=== PATIENT | female | born 1930 | race Caucasian/White ===

== ENCOUNTER 2018-03-11 23:09 | Inpatient (IN) | payer OTHER, BC ==
[2018-03-12] MEDS: SODIUM CHLORIDE 0.9% 1L BAG IV* (00:14)
[2018-03-12] MEDS: LEVALBUTEROL (NEB) 1.25 MG/0.5 ML AMP INH (00:16)
[2018-03-12] MEDS: IPRATROPIUM (NEB) 0.5 MG/2.5 ML AMP NEB (00:16)
[2018-03-12 00:20] LABS: ADD MAN DIFF? NO
[2018-03-12 00:25] LABS: WHITE BLOOD COUNT 10.6 10^3/ul (4.8-10.8)
[2018-03-12 00:25] LABS: ABNORMAL IP MESSAGE 1; BASOPHILS % 0.4 % (0.0-2.0); EOSINOPHILS % 0.2 % (0.0-7.0); HEMATOCRIT 32.2 % (37.0-47.0); HEMOGLOBIN 8.6 g/dl (12.0-16.0); LYMPHOCYTES # 1.1 10^3/ul (0.8-2.9); MEAN CORPUSCULAR HEMOGLOBIN 29.6 pg (29.0-33.0); MEAN CORPUSCULAR HGB CONC 26.7 g/dl (32.0-37.0); MEAN CORPUSCULAR VOLUME 110.7 fl (82.0-101.0); MEAN PLATELET VOLUME 10.6 fl (7.4-10.4); MONOCYTE # 0.7 10^3/ul (0.3-0.9); MONOCYTES % 6.7 % (0.0-11.0); NEUTROPHIL # 8.3 10^3/ul (1.6-7.5); NUCLEATED RED BLOOD CELLS # 0.3 10^3/ul (0.0-0.0); NUCLEATED RED BLOOD CELLS% 2.5 /100WBC (0.0-0.0); PLATELET COUNT 263 10^3/UL (140-415); RED BLOOD COUNT 2.91 10^6/ul (4.20-5.40); RED CELL DISTRIBUTION WIDTH 24.5 % (11.5-14.5)
[2018-03-12 00:29] LABS: POSITIVE DIFF @See below
[2018-03-12] MEDS: PROPOFOL 100 ML IV ×5 (00:30→20:55)
[2018-03-12 00:44] LABS: INR 1.16; PARTIAL THROMBOPLASTIN TIME 32.8 Sec (23.0-35.0); PROTIME 14.9 Sec (11.9-14.9); PT RATIO 1.2
[2018-03-12 00:46] LABS: ALANINE AMINOTRANSFERASE 15 IU/L (13-69); ALBUMIN 3.6 g/dl (3.3-4.9); ALBUMIN/GLOBULIN RATIO 1.02; ALKALINE PHOSPHATASE 96 IU/L (42-121); ANION GAP 7 (5-13); ASPARTATE AMINO TRANSFERASE 48 IU/L (15-46); BILIRUBIN,INDIRECT 0.5 mg/dl (0-1.1); BILIRUBIN,TOTAL 1.1 mg/dl (0.2-1.3); BLOOD UREA NITROGEN 34 mg/dl (7-20); CALCIUM 9.5 mg/dl (8.4-10.2); CARBON DIOXIDE 31 mmol/L (21-31); CHLORIDE 117 mmol/L (97-110); CREATININE 1.08 mg/dl (0.44-1.00); GLUCOSE 205 mg/dl (70-220); POTASSIUM 5.8 mmol/L (3.5-5.1); SODIUM 155 mmol/L (135-144); TOTAL PROTEIN 7.1 g/dl (6.1-8.1)
[2018-03-12] MEDS ORDERED: PROPOFOL 100 ML (00:54)
[2018-03-12 01:07] LABS: TROPONIN-I 0.211 ng/ml (0.000-0.120)
[2018-03-12 02:18] LABS: Arterial Base Excess -3.9 mmol/L (-3.0-3); Arterial Blood Gas Oxygen Sat 99.6 mmHG (95.0-100.0); Arterial COHb 0.1 % (0.0-3.0); Arterial Fraction of Oxyhgb 99.1 % (93.0-99.0); Arterial HCO3 20.7 mmol/L (22.0-26.0); Arterial MetHb 0.4 % (0.0-1.5); Arterial pCO2 36.1 mmhg (35-45); MODE VENT - AC; Site LB
[2018-03-12 02:25] LABS: ADD UMIC YES; UR ASCORBIC ACID NEGATIVE (NEGATIVE); UR BACTERIA FEW /HPF (NONE SEEN); UR BILIRUBIN (Dip) NEGATIVE (NEGATIVE); UR BLOOD (Dip) 2+ mg/dL (NEGATIVE); UR BUDDING YEAST FEW /HPF (NONE SEEN); UR CLARITY SLIGHTLY CLOUDY (CLEAR); UR COLOR AMBER (YELLOW); UR GLUCOSE (Dip) NEGATIVE (NEGATIVE); UR KETONES (Dip) NEGATIVE (NEGATIVE); UR LEUKOCYTE ESTERASE (Dip) NEGATIVE Leu/ul (NEGATIVE); UR MUCUS FEW /HPF (NONE SEEN); UR NITRITE (Dip) NEGATIVE (NEGATIVE); UR RBC 29 /HPF (0-5); UR SPECIFIC GRAVITY (Dip) 1.014 (1.003-1.030); UR TOTAL PROTEIN (Dip) NEGATIVE (NEGATIVE); UR UROBILINOGEN (Dip) NEGATIVE (NEGATIVE); UR WBC 2 /HPF (0-5)
[2018-03-12] MEDS ORDERED: hydrALAzine 20 MG INJ IV (03:00)
[2018-03-12] MEDS ORDERED: ACETAMINOPHEN 325 MG TAB PO (03:00)
[2018-03-12] MEDS ORDERED: MAGNESIUM HYDROXIDE 30ML CUP PO (03:00)
[2018-03-12] MEDS ORDERED: ONDANSETRON 4 MG INJ IV (03:00)
[2018-03-12] MEDS ORDERED: morphine 2 MG INJ IV (03:00)
[2018-03-12] MEDS ORDERED: DOCUSATE SODIUM 100 MG CAP PO (03:00)
[2018-03-12] MEDS ORDERED: NACL 0.9% 3 ML SYG IV (03:00)
[2018-03-12 03:35] LABS: HEMOGLOBIN A1C 6.9 % (0-5.9)
[2018-03-12 03:40] LABS: CREATINE KINASE 30 IU/L (23-200)
[2018-03-12 03:41] LABS: INR 1.23; PROTIME 15.6 Sec (11.9-14.9); PT RATIO 1.2
[2018-03-12 03:42] LABS: PARTIAL THROMBOPLASTIN TIME 34.5 Sec (23.0-35.0)
[2018-03-12 03:53] LABS: CK-MB 1.21 ng/ml (0.0-2.4)
[2018-03-12 03:57] LABS: TROPONIN-I 0.197 ng/ml (0.000-0.120)
[2018-03-12 03:58] LABS: FREE T4 (FREE THYROXINE) 1.04 ng/dl (0.85-1.93)
[2018-03-12] MEDS: DEXTROSE 5% 1,000 ML IV (04:30)
[2018-03-12 05:30] LABS: LACTIC ACID 1.6 mmol/L (0.5-2.0)
[2018-03-12] MEDS: CEFEPIME 2GM/50 ML (PMX) 50 ML IVPB (05:30)
[2018-03-12] MEDS: VANCOMYCIN 1 GM (PMX) 250 ML IVPB (06:04)
[2018-03-12] MEDS ORDERED: SUCCINYLCHOLINE CHLORIDE 100 MG/5 ML SYG IV (07:00)
[2018-03-12] MEDS ORDERED: LIDOCAINE 100 MG SYRINGE (07:00)
[2018-03-12] MEDS ORDERED: VANCOMYCIN IV PER PHARMACY XX (07:00)
[2018-03-12] MEDS ORDERED: GLUCOSE GEL 15 GRAM TUBE PO ×2 (07:30)
[2018-03-12] MEDS ORDERED: GLUCOSE GEL 15 GRAM TUBE BUCCAL (07:30)
[2018-03-12] MEDS ORDERED: GLUCAGON 1 MG INJ IM (07:30)
[2018-03-12] MEDS: ENOXAPARIN 60 MG/0.6 ML SYG SC (08:54)
[2018-03-12] MEDS: ASPIRIN (EC) 325 MG TAB PO (09:00)
[2018-03-12] MEDS: INSULIN ASPART [NOVOLOG] 3 ML PEN SC ×4 (09:10→20:50)
[2018-03-12 09:12] LABS: CREATINE KINASE 29 IU/L (23-200)
[2018-03-12] MEDS: FAMOTIDINE 20 MG INJ IV ×2 (09:12→21:05)
[2018-03-12 09:25] LABS: CK INDEX 2.9; CK-MB 0.83 ng/ml (0.0-2.4)
[2018-03-12 09:26] LABS: TROPONIN-I 0.172 ng/ml (0.000-0.120)
[2018-03-12 10:38] LABS: ANION GAP 12 (5-13); BLOOD UREA NITROGEN 32 mg/dl (7-20); CALCIUM 8.9 mg/dl (8.4-10.2); CARBON DIOXIDE 20 mmol/L (21-31); CHLORIDE 120 mmol/L (97-110); CREATININE 0.85 mg/dl (0.44-1.00); GLUCOSE 207 mg/dl (70-220); POTASSIUM 4.4 mmol/L (3.5-5.1); SODIUM 152 mmol/L (135-144)
[2018-03-12] MEDS: SOD CHLORIDE 0.45% 1,000 ML IV ×2 (11:01→21:05)
[2018-03-12] MEDS: FLUCONAZOLE 100 MG/50 ML (PMX) 50 ML IVPB (11:12)
[2018-03-12] MEDS ORDERED: ARTIFICIAL TEARS 15 ML OPH BOTH EYES (12:30)
[2018-03-12] MEDS: DOCUSATE SODIUM 100 MG CAP PO (15:12)
[2018-03-12] MEDS ORDERED: WARFARIN 1 MG TAB PO (17:00)
[2018-03-12] MEDS ORDERED: metFORMIN 500 MG TAB PO (17:35)
[2018-03-12] MEDS ORDERED: metFORMIN 850 MG TAB PO (17:35)
[2018-03-12] MEDS ORDERED: METOPROLOL 25 MG TAB PO (21:00)
[2018-03-12] MEDS ORDERED: LEVETIRACETAM 250 MG TAB PO (21:00)
[2018-03-12] MEDS ORDERED: RANITIDINE 150 MG TAB PO (21:00)
[2018-03-12] MEDS: CEFEPIME 1GM/50 ML (PMX) 50 ML IVPB (21:08)
[2018-03-13] MEDS: INSULIN ASPART [NOVOLOG] 3 ML PEN SC ×6 (02:36→20:58)
[2018-03-13] MEDS: ACCU-CHEK XX (02:37)
[2018-03-13] MEDS: DOCUSATE SODIUM 100 MG CAP PO ×2 (02:39→15:00)
[2018-03-13] MEDS: PROPOFOL 100 ML IV ×2 (04:11→12:11)
[2018-03-13] MEDS: VANCOMYCIN 750 MG (PMX) 250 ML IVPB (04:43)
[2018-03-13 05:17] LABS: ADD MAN DIFF? NO
[2018-03-13 05:22] LABS: ABNORMAL IP MESSAGE 1; EOSINOPHILS # 0.1 10^3/ul (0.0-0.5); EOSINOPHILS % 0.8 % (0.0-7.0); HEMOGLOBIN 7.7 g/dl (12.0-16.0); LYMPHOCYTES # 0.7 10^3/ul (0.8-2.9); LYMPHOCYTES % 11.5 % (15.0-51.0); MEAN CORPUSCULAR HEMOGLOBIN 29.4 pg (29.0-33.0); MEAN CORPUSCULAR HGB CONC 29.6 g/dl (32.0-37.0); MEAN CORPUSCULAR VOLUME 99.2 fl (82.0-101.0); MEAN PLATELET VOLUME 11.1 fl (7.4-10.4); MONOCYTE # 0.3 10^3/ul (0.3-0.9); MONOCYTES % 4.3 % (0.0-11.0); NEUTROPHIL # 5.3 10^3/ul (1.6-7.5); NEUTROPHILS % 82.3 % (39.0-77.0); NUCLEATED RED BLOOD CELLS% 0.5 /100WBC (0.0-0.0); PLATELET COUNT 206 10^3/UL (140-415); RED BLOOD COUNT 2.62 10^6/ul (4.20-5.40)
[2018-03-13 05:22] LABS: WHITE BLOOD COUNT 6.4 10^3/ul (4.8-10.8)
[2018-03-13 05:31] LABS: POSITIVE DIFF @See below
[2018-03-13 05:43] LABS: HEMOGLOBIN A1C 6.7 % (0-5.9)
[2018-03-13 05:51] LABS: CHOL/HDL RATIO 5.4 RATIO; HDL CHOLESTEROL 20 mg/dl (33-92); LDL CHOLESTEROL,CALCULATED 42 mg/dl; TRIGLYCERIDES 236 mg/dl (0-149)
[2018-03-13 05:51] LABS: CHOLESTEROL 109 mg/dl (100-200)
[2018-03-13] MEDS: SOD CHLORIDE 0.45% 1,000 ML IV ×2 (06:13→20:44)
[2018-03-13] MEDS ORDERED: GLIMEPIRIDE 4 MG TAB PO (07:05)
[2018-03-13 07:24] LABS: ANION GAP 7 (5-13); BLOOD UREA NITROGEN 27 mg/dl (7-20); CALCIUM 8.8 mg/dl (8.4-10.2); CARBON DIOXIDE 24 mmol/L (21-31); CHLORIDE 116 mmol/L (97-110); CREATININE 0.72 mg/dl (0.44-1.00); GLUCOSE 199 mg/dl (70-220); MAGNESIUM 2.2 mg/dl (1.7-2.5); PHOSPHORUS 1.6 mg/dl (2.5-4.9); POTASSIUM 3.5 mmol/L (3.5-5.1); SODIUM 147 mmol/L (135-144)
[2018-03-13 08:18] LABS: AADO2 Arterial 67.9 mmHg (7.0-24.0); Arterial Base Excess -3.3 mmol/L (-3.0-3); Arterial Blood Gas Oxygen Sat 98.3 mmHG (95.0-100.0); Arterial COHb 0.7 % (0.0-3.0); Arterial Fraction of Oxyhgb 97.3 % (93.0-99.0); Arterial MetHb 0.3 % (0.0-1.5); Arterial pCO2 24.9 mmhg (35-45); MODE VENT - AC; Site Right Brachial
[2018-03-13] MEDS ORDERED: CHOLECALCIFEROL 2,000 UNIT CAP PO (09:00)
[2018-03-13] MEDS ORDERED: CYANOCOBALAMIN 500 MCG TAB PO (09:00)
[2018-03-13] MEDS ORDERED: FUROSEMIDE 40 MG TAB GTB (09:00)
[2018-03-13] MEDS ORDERED: BENAZEPRIL 10 MG TAB PO (09:00)
[2018-03-13] MEDS ORDERED: CALCIUM/VITAMIN D (500/200) TAB PO (09:00)
[2018-03-13] MEDS: CEFEPIME 1GM/50 ML (PMX) 50 ML IVPB ×2 (09:04→20:38)
[2018-03-13] MEDS: ASPIRIN (EC) 325 MG TAB PO (09:04)
[2018-03-13] MEDS: FAMOTIDINE 20 MG INJ IV ×2 (09:04→20:38)
[2018-03-13] MEDS: ENOXAPARIN 30 MG/0.3 ML SYG SC (09:05)
[2018-03-13] MEDS: FLUCONAZOLE 100 MG/50 ML (PMX) 50 ML IVPB (11:04)
[2018-03-13] MEDS: FENTAnyl (DRIP) 1000 mcg/100mL 100 ML IV (12:02)
[2018-03-13] MEDS: SILDENAFIL 20 MG TAB PO ×2 (13:05→20:39)
[2018-03-13] MEDS ORDERED: DILTIAZEM 25 MG INJ IV (16:30)
[2018-03-13] MEDS: DIGOXIN 500 MCG INJ IV (17:04)
[2018-03-13] MEDS: INSULIN GLARGINE [LANTus] (100 UNITS/ML) SYG SC (20:57)
[2018-03-14] MEDS: INSULIN ASPART [NOVOLOG] 3 ML PEN SC ×6 (01:38→21:55)
[2018-03-14] MEDS: ACCU-CHEK XX (01:38)
[2018-03-14] MEDS: PROPOFOL 100 ML IV ×3 (02:11→20:52)
[2018-03-14] MEDS: DOCUSATE SODIUM 100 MG CAP PO ×2 (03:11→14:57)
[2018-03-14] MEDS: VANCOMYCIN 750 MG (PMX) 250 ML IVPB (05:12)
[2018-03-14 06:01] LABS: ADD MAN DIFF? NO
[2018-03-14 06:08] LABS: WHITE BLOOD COUNT 5.5 10^3/ul (4.8-10.8)
[2018-03-14 06:08] LABS: ABNORMAL IP MESSAGE 1; BASOPHILS % 0.2 % (0.0-2.0); EOSINOPHILS # 0.2 10^3/ul (0.0-0.5); EOSINOPHILS % 3.6 % (0.0-7.0); HEMATOCRIT 25.8 % (37.0-47.0); HEMOGLOBIN 7.7 g/dl (12.0-16.0); LYMPHOCYTES # 0.7 10^3/ul (0.8-2.9); LYMPHOCYTES % 12.7 % (15.0-51.0); MEAN CORPUSCULAR HEMOGLOBIN 29.4 pg (29.0-33.0); MEAN CORPUSCULAR HGB CONC 29.8 g/dl (32.0-37.0); MEAN CORPUSCULAR VOLUME 98.5 fl (82.0-101.0); MEAN PLATELET VOLUME 11.5 fl (7.4-10.4); MONOCYTE # 0.3 10^3/ul (0.3-0.9); MONOCYTES % 4.7 % (0.0-11.0); NEUTROPHIL # 4.3 10^3/ul (1.6-7.5); NEUTROPHILS % 77.4 % (39.0-77.0); NUCLEATED RED BLOOD CELLS% 0.4 /100WBC (0.0-0.0); PLATELET COUNT 189 10^3/UL (140-415); RED BLOOD COUNT 2.62 10^6/ul (4.20-5.40); RED CELL DISTRIBUTION WIDTH 25.4 % (11.5-14.5)
[2018-03-14 06:13] LABS: POSITIVE DIFF @See below
[2018-03-14 06:32] LABS: ANION GAP 4 (5-13); BLOOD UREA NITROGEN 30 mg/dl (7-20); CALCIUM 8.2 mg/dl (8.4-10.2); CARBON DIOXIDE 26 mmol/L (21-31); CHLORIDE 115 mmol/L (97-110); CREATININE 0.66 mg/dl (0.44-1.00); GLUCOSE 201 mg/dl (70-220); POTASSIUM 3.7 mmol/L (3.5-5.1); SODIUM 145 mmol/L (135-144)
[2018-03-14 07:29] LABS: AADO2 Arterial 70.2 mmHg (7.0-24.0); Allen Test ACCEPTAB; Arterial Base Excess -2.3 mmol/L (-3.0-3); Arterial Blood Gas Oxygen Sat 97.3 mmHG (95.0-100.0); Arterial COHb 0.3 % (0.0-3.0); Arterial Fraction of Oxyhgb 96.6 % (93.0-99.0); Arterial MetHb 0.4 % (0.0-1.5); Arterial pCO2 35.6 mmhg (35-45); MODE VENT - AC; Site Right Brachial
[2018-03-14 08:12] LABS: MAGNESIUM 2.2 mg/dl (1.7-2.5)
[2018-03-14 08:12] LABS: PHOSPHORUS 1.8 mg/dl (2.5-4.9)
[2018-03-14] MEDS: CEFEPIME 1GM/50 ML (PMX) 50 ML IVPB ×2 (08:41→21:50)
[2018-03-14] MEDS: SILDENAFIL 20 MG TAB PO ×3 (08:49→21:00)
[2018-03-14] MEDS: ASPIRIN (EC) 325 MG TAB PO (08:49)
[2018-03-14] MEDS: ENOXAPARIN 30 MG/0.3 ML SYG SC (08:50)
[2018-03-14] MEDS: FAMOTIDINE 20 MG INJ IV (08:50)
[2018-03-14] MEDS: FLUCONAZOLE 100 MG/50 ML (PMX) 50 ML IVPB ×3 (10:47→13:38)
[2018-03-14 12:02] LABS: AADO2 Arterial 72.2 mmHg (7.0-24.0); Arterial COHb 0.2 % (0.0-3.0); Arterial Fraction of Oxyhgb 96.6 % (93.0-99.0); Arterial HCO3 23.6 mmol/L (22.0-26.0); Arterial MetHb 0.2 % (0.0-1.5); Arterial pCO2 38.5 mmhg (35-45); Blood Gas PS 10; MODE 5; Site Right Brachial
[2018-03-14] MEDS: POTASSIUM PHOSPHATE 15 MM in SOD CHLORIDE 0.9% 250 ML IVPB (13:38)
[2018-03-14] MEDS: SOD CHLORIDE 0.45% 1,000 ML IV (16:40)
[2018-03-14] MEDS: FAMOTIDINE 20 MG TAB NGT (21:00)
[2018-03-14] MEDS: INSULIN GLARGINE [LANTus] (100 UNITS/ML) SYG SC (22:00)
[2018-03-15] MEDS: INSULIN ASPART [NOVOLOG] 3 ML PEN SC ×6 (01:00→21:00)
[2018-03-15] MEDS: SOD CHLORIDE 0.45% 1,000 ML IV (01:49)
[2018-03-15] MEDS: FENTAnyl (DRIP) 1000 mcg/100mL 100 ML IV (01:52)
[2018-03-15] MEDS: ACCU-CHEK XX (02:00)
[2018-03-15] MEDS: DOCUSATE SODIUM 100 MG CAP PO (03:00)
[2018-03-15] MEDS: PROPOFOL 100 ML IV (04:57)
[2018-03-15 05:20] LABS: ADD MAN DIFF? NO
[2018-03-15 05:25] LABS: WHITE BLOOD COUNT 6.1 10^3/ul (4.8-10.8)
[2018-03-15 05:25] LABS: ABNORMAL IP MESSAGE 1; BASOPHILS % 0.2 % (0.0-2.0); EOSINOPHILS # 0.3 10^3/ul (0.0-0.5); EOSINOPHILS % 4.5 % (0.0-7.0); HEMATOCRIT 27.2 % (37.0-47.0); HEMOGLOBIN 8.2 g/dl (12.0-16.0); LYMPHOCYTES # 1.3 10^3/ul (0.8-2.9); LYMPHOCYTES % 20.6 % (15.0-51.0); MEAN CORPUSCULAR HEMOGLOBIN 29.6 pg (29.0-33.0); MEAN CORPUSCULAR HGB CONC 30.1 g/dl (32.0-37.0); MEAN CORPUSCULAR VOLUME 98.2 fl (82.0-101.0); MEAN PLATELET VOLUME 11.3 fl (7.4-10.4); MONOCYTE # 0.4 10^3/ul (0.3-0.9); MONOCYTES % 6.6 % (0.0-11.0); NEUTROPHILS % 66.3 % (39.0-77.0); NUCLEATED RED BLOOD CELLS% 0.3 /100WBC (0.0-0.0); PLATELET COUNT 201 10^3/UL (140-415); RED BLOOD COUNT 2.77 10^6/ul (4.20-5.40); RED CELL DISTRIBUTION WIDTH 25.5 % (11.5-14.5)
[2018-03-15 05:42] LABS: POSITIVE DIFF @See below
[2018-03-15 05:52] LABS: VANCOMYCIN,TROUGH 10.6 ug/ml (10.0-20.0)
[2018-03-15] MEDS: DEXTROSE 50% 50 ML SYRINGE IV (06:02)
[2018-03-15 06:04] LABS: ANION GAP 5 (5-13); BLOOD UREA NITROGEN 27 mg/dl (7-20); CALCIUM 8.5 mg/dl (8.4-10.2); CARBON DIOXIDE 25 mmol/L (21-31); CHLORIDE 115 mmol/L (97-110); POTASSIUM 3.3 mmol/L (3.5-5.1); SODIUM 145 mmol/L (135-144)
[2018-03-15 06:08] LABS: GLUCOSE 33 mg/dl (70-220)
[2018-03-15] MEDS: VANCOMYCIN 750 MG (PMX) 250 ML IVPB (07:11)
[2018-03-15 07:49] LABS: AADO2 Arterial 69.1 mmHg (7.0-24.0); Arterial Base Excess -2.4 mmol/L (-3.0-3); Arterial Blood Gas Oxygen Sat 98.1 mmHG (95.0-100.0); Arterial COHb 0.7 % (0.0-3.0); Arterial Fraction of Oxyhgb 97.1 % (93.0-99.0); Arterial HCO3 20.8 mmol/L (22.0-26.0); Arterial MetHb 0.3 % (0.0-1.5); MODE VENT - AC; Site Right Brachial
[2018-03-15] MEDS: INSULIN GLARGINE [LANTus] (100 UNITS/ML) SYG SC ×2 (08:00→21:41)
[2018-03-15] MEDS: POTASSIUM CHLORIDE 20 MEQ POWDER FOR ORAL SOLN GTB (08:23)
[2018-03-15] MEDS: SILDENAFIL 20 MG TAB PO ×3 (08:24→21:00)
[2018-03-15] MEDS: DOCUSATE SODIUM 10 MG/ML (10ML CUP) NGT ×2 (08:24→21:00)
[2018-03-15] MEDS: CEFEPIME 1GM/50 ML (PMX) 50 ML IVPB ×2 (08:24→21:38)
[2018-03-15] MEDS: ASPIRIN (EC) 325 MG TAB PO (08:24)
[2018-03-15] MEDS: ENOXAPARIN 30 MG/0.3 ML SYG SC (08:44)
[2018-03-15] MEDS: FLUCONAZOLE 200 MG (PMX) 100 ML IVPB (11:27)
[2018-03-15 12:53] LABS: OCCULT BLOOD STOOL NEGATIVE (NEGATIVE)
[2018-03-15 12:54] LABS: AADO2 Arterial 70.9 mmHg (7.0-24.0); Arterial Base Excess -1.9 mmol/L (-3.0-3); Arterial Blood Gas Oxygen Sat 97.4 mmHG (95.0-100.0); Arterial COHb 0.2 % (0.0-3.0); Arterial HCO3 22.5 mmol/L (22.0-26.0); Arterial MetHb 0.2 % (0.0-1.5); Arterial pCO2 36.6 mmhg (35-45); Blood Gas PS 10; MODE VENT - CPAP; Site Right Brachial
[2018-03-15] MEDS: ALBUTEROL/IPRATROPIUM (NEB) 3 ML AMP HHN (14:30)
[2018-03-15] MEDS: DEXTROSE 5%-0.45% NACL 1,000 ML IV (15:28)
[2018-03-15] MEDS: LEVALBUTEROL (NEB) 0.63 MG/3 ML AMP HHN ×2 (15:30→20:04)
[2018-03-15] MEDS: FAMOTIDINE 20 MG TAB NGT (21:00)
[2018-03-15] MEDS: FUROSEMIDE 40 MG INJ IV (21:38)
[2018-03-16] MEDS: INSULIN ASPART [NOVOLOG] 3 ML PEN SC ×6 (01:00→20:46)
[2018-03-16] MEDS: ACCU-CHEK XX (01:12)
[2018-03-16] MEDS: LEVALBUTEROL (NEB) 0.63 MG/3 ML AMP HHN ×4 (01:18→19:52)
[2018-03-16] MEDS: DEXTROSE 5%-0.45% NACL 1,000 ML IV ×2 (04:17→18:10)
[2018-03-16 04:34] LABS: ADD MAN DIFF? NO
[2018-03-16 04:43] LABS: ABNORMAL IP MESSAGE 1; BASOPHILS % 0.5 % (0.0-2.0); EOSINOPHILS # 0.2 10^3/ul (0.0-0.5); HEMATOCRIT 27.1 % (37.0-47.0); HEMOGLOBIN 7.9 g/dl (12.0-16.0); LYMPHOCYTES # 0.7 10^3/ul (0.8-2.9); LYMPHOCYTES % 11.7 % (15.0-51.0); MEAN CORPUSCULAR HEMOGLOBIN 29.3 pg (29.0-33.0); MEAN CORPUSCULAR HGB CONC 29.2 g/dl (32.0-37.0); MEAN CORPUSCULAR VOLUME 100.4 fl (82.0-101.0); MEAN PLATELET VOLUME 10.9 fl (7.4-10.4); MONOCYTE # 0.6 10^3/ul (0.3-0.9); MONOCYTES % 9.4 % (0.0-11.0); NEUTROPHIL # 4.5 10^3/ul (1.6-7.5); NEUTROPHILS % 73.4 % (39.0-77.0); PLATELET COUNT 229 10^3/UL (140-415); RED CELL DISTRIBUTION WIDTH 25.4 % (11.5-14.5)
[2018-03-16 04:43] LABS: WHITE BLOOD COUNT 6.1 10^3/ul (4.8-10.8)
[2018-03-16 04:54] LABS: MAGNESIUM 1.9 mg/dl (1.7-2.5)
[2018-03-16 04:55] LABS: ANION GAP 0 (5-13); BLOOD UREA NITROGEN 22 mg/dl (7-20); CALCIUM 8.7 mg/dl (8.4-10.2); CARBON DIOXIDE 27 mmol/L (21-31); CHLORIDE 116 mmol/L (97-110); CREATININE 0.63 mg/dl (0.44-1.00); GLUCOSE 111 mg/dl (70-220); POTASSIUM 3.7 mmol/L (3.5-5.1); SODIUM 143 mmol/L (135-144)
[2018-03-16 05:02] LABS: POSITIVE DIFF @See below
[2018-03-16] MEDS: PROPOFOL 100 ML IV (05:18)
[2018-03-16] MEDS: VANCOMYCIN 1 GM 250 ML IVPB (05:43)
[2018-03-16] MEDS: INSULIN GLARGINE [LANTus] (100 UNITS/ML) SYG SC (08:00)
[2018-03-16] MEDS: DOCUSATE SODIUM 10 MG/ML (10ML CUP) NGT ×2 (09:00→22:04)
[2018-03-16] MEDS: SILDENAFIL 20 MG TAB PO ×3 (09:00→22:05)
[2018-03-16] MEDS: ASPIRIN (EC) 325 MG TAB PO (09:00)
[2018-03-16] MEDS: CEFEPIME 1GM/50 ML (PMX) 50 ML IVPB (09:18)
[2018-03-16] MEDS: ENOXAPARIN 30 MG/0.3 ML SYG SC (09:19)
[2018-03-16 09:47] LABS: AADO2 Arterial 35.9 mmHg (7.0-24.0); Allen Test ACCEPTAB; Arterial Base Excess -0.9 mmol/L (-3.0-3); Arterial Blood Gas Oxygen Sat 94.1 mmHG (95.0-100.0); Arterial COHb 0.8 % (0.0-3.0); Arterial Fraction of Oxyhgb 93.2 % (93.0-99.0); Arterial HCO3 23.2 mmol/L (22.0-26.0); Arterial MetHb 0.2 % (0.0-1.5); Arterial pCO2 36.1 mmhg (35-45); MODE ROOM AIR; Site Right Brachial
[2018-03-16] MEDS: FLUCONAZOLE 200 MG (PMX) 100 ML IVPB (10:38)
[2018-03-16] MEDS: MAGNESIUM SULFATE 2 GM/50 ML 50 ML IVPB (12:10)
[2018-03-16] MEDS: DEXTROSE 50% 50 ML SYRINGE IV (13:56)
[2018-03-16] MEDS: POTASSIUM CHLORIDE 100 ML IVPB (14:25)
[2018-03-16] MEDS: NITROGLYCERIN (SL) 0.4 MG TAB SL (15:16)
[2018-03-16] MEDS: ACETAMINOPHEN 1000MG/100ML IV 100 ML IVPB (15:17)
[2018-03-16] MEDS: FUROSEMIDE 20 MG INJ IV (20:51)
[2018-03-16] MEDS: APIXABAN 5 MG TABLET PO (22:04)
[2018-03-16] MEDS: FAMOTIDINE 20 MG TAB NGT (22:05)
[2018-03-17] MEDS: INSULIN ASPART [NOVOLOG] 3 ML PEN SC ×6 (01:00→20:46)
[2018-03-17] MEDS: LEVALBUTEROL (NEB) 0.63 MG/3 ML AMP HHN ×4 (02:08→20:16)
[2018-03-17 04:51] LABS: ADD MAN DIFF? NO
[2018-03-17 04:56] LABS: ABNORMAL IP MESSAGE 1; BASOPHILS % 0.3 % (0.0-2.0); EOSINOPHILS # 0.2 10^3/ul (0.0-0.5); EOSINOPHILS % 2.3 % (0.0-7.0); HEMATOCRIT 27.1 % (37.0-47.0); LYMPHOCYTES # 0.6 10^3/ul (0.8-2.9); LYMPHOCYTES % 8.9 % (15.0-51.0); MEAN CORPUSCULAR HEMOGLOBIN 29.2 pg (29.0-33.0); MEAN CORPUSCULAR HGB CONC 29.5 g/dl (32.0-37.0); MEAN CORPUSCULAR VOLUME 98.9 fl (82.0-101.0); MEAN PLATELET VOLUME 10.6 fl (7.4-10.4); MONOCYTE # 0.9 10^3/ul (0.3-0.9); MONOCYTES % 12.4 % (0.0-11.0); NEUTROPHIL # 5.3 10^3/ul (1.6-7.5); PLATELET COUNT 258 10^3/UL (140-415); RED BLOOD COUNT 2.74 10^6/ul (4.20-5.40); RED CELL DISTRIBUTION WIDTH 25.4 % (11.5-14.5)
[2018-03-17 05:11] LABS: POSITIVE DIFF @See below
[2018-03-17] MEDS: VANCOMYCIN 1 GM 250 ML IVPB (05:12)
[2018-03-17 05:45] LABS: MAGNESIUM 2.3 mg/dl (1.7-2.5)
[2018-03-17 05:45] LABS: PHOSPHORUS 3.5 mg/dl (2.5-4.9)
[2018-03-17 05:47] LABS: ANION GAP 5 (5-13); BLOOD UREA NITROGEN 19 mg/dl (7-20); CALCIUM 9.1 mg/dl (8.4-10.2); CARBON DIOXIDE 27 mmol/L (21-31); CHLORIDE 111 mmol/L (97-110); CREATININE 0.58 mg/dl (0.44-1.00); GLUCOSE 120 mg/dl (70-220); POTASSIUM 3.9 mmol/L (3.5-5.1); SODIUM 143 mmol/L (135-144)
[2018-03-17] MEDS: DOCUSATE SODIUM 10 MG/ML (10ML CUP) NGT ×2 (08:29→20:43)
[2018-03-17] MEDS: FUROSEMIDE 20 MG INJ IV (08:29)
[2018-03-17] MEDS: HYDROCODONE/APAP (5/325) TAB PO ×2 (08:30→19:00)
[2018-03-17] MEDS: APIXABAN 5 MG TABLET PO ×2 (08:30→20:43)
[2018-03-17] MEDS: SILDENAFIL 20 MG TAB PO ×3 (09:03→20:43)
[2018-03-17 10:28] LABS: IRON 21 ug/dl (35-150)
[2018-03-17 10:38] LABS: % IRON SATURATION 10 % SAT (22-52); TOTAL IRON BINDING CAPACITY 219 ug/dl (241-421)
[2018-03-17] MEDS: FLUCONAZOLE 200 MG (PMX) 100 ML IVPB (11:09)
[2018-03-17 13:26] LABS: FOLATE 16.7 ng/ml (2.8-20.0)
[2018-03-17 19:55] LABS: RAPID PLASMA REAGIN NONREACTIVE (NR)
[2018-03-17] MEDS: FAMOTIDINE 20 MG TAB NGT (20:43)
[2018-03-18] MEDS: LEVALBUTEROL (NEB) 0.63 MG/3 ML AMP HHN ×4 (01:40→20:25)
[2018-03-18] MEDS: INSULIN ASPART [NOVOLOG] 3 ML PEN SC ×6 (01:50→20:54)
[2018-03-18 04:55] LABS: ADD MAN DIFF? NO
[2018-03-18 04:57] LABS: ABNORMAL IP MESSAGE 1; BASOPHILS % 0.2 % (0.0-2.0); EOSINOPHILS # 0.2 10^3/ul (0.0-0.5); EOSINOPHILS % 2.9 % (0.0-7.0); HEMATOCRIT 25.7 % (37.0-47.0); HEMOGLOBIN 7.6 g/dl (12.0-16.0); LYMPHOCYTES # 0.7 10^3/ul (0.8-2.9); LYMPHOCYTES % 10.9 % (15.0-51.0); MEAN CORPUSCULAR HEMOGLOBIN 29.1 pg (29.0-33.0); MEAN CORPUSCULAR HGB CONC 29.6 g/dl (32.0-37.0); MEAN CORPUSCULAR VOLUME 98.5 fl (82.0-101.0); MEAN PLATELET VOLUME 10.6 fl (7.4-10.4); MONOCYTES % 15.5 % (0.0-11.0); NEUTROPHIL # 4.3 10^3/ul (1.6-7.5); NEUTROPHILS % 69.4 % (39.0-77.0); PLATELET COUNT 267 10^3/UL (140-415); RED BLOOD COUNT 2.61 10^6/ul (4.20-5.40); RED CELL DISTRIBUTION WIDTH 25.3 % (11.5-14.5)
[2018-03-18 04:57] LABS: WHITE BLOOD COUNT 6.2 10^3/ul (4.8-10.8)
[2018-03-18 05:02] LABS: AADO2 Arterial 43.7 mmHg (7.0-24.0); Allen Test ACCEPTAB; Arterial Base Excess 2.7 mmol/L (-3.0-3); Arterial Blood Gas Oxygen Sat 92.7 mmHG (95.0-100.0); Arterial COHb 2.3 % (0.0-3.0); Arterial Fraction of Oxyhgb 90.3 % (93.0-99.0); Arterial HCO3 26.1 mmol/L (22.0-26.0); Arterial MetHb 0.3 % (0.0-1.5); Arterial pCO2 35.2 mmhg (35-45); MODE ROOM AIR; Site Left Radial
[2018-03-18 05:11] LABS: POSITIVE DIFF @See below
[2018-03-18 05:24] LABS: LACTIC ACID 1.4 mmol/L (0.5-2.0)
[2018-03-18] MEDS: VANCOMYCIN 1 GM 250 ML IVPB (05:25)
[2018-03-18 05:26] LABS: ANION GAP 0 (5-13); BLOOD UREA NITROGEN 23 mg/dl (7-20); CALCIUM 8.9 mg/dl (8.4-10.2); CARBON DIOXIDE 30 mmol/L (21-31); CHLORIDE 111 mmol/L (97-110); CREATININE 0.57 mg/dl (0.44-1.00); GLUCOSE 152 mg/dl (70-220); SODIUM 141 mmol/L (135-144)
[2018-03-18] MEDS: HYDROCODONE/APAP (5/325) TAB PO ×3 (05:33→21:50)
[2018-03-18] MEDS: SILDENAFIL 20 MG TAB PO ×3 (10:00→20:35)
[2018-03-18] MEDS: APIXABAN 5 MG TABLET PO ×2 (10:11→20:34)
[2018-03-18] MEDS: FUROSEMIDE 20 MG TAB NGT (10:11)
[2018-03-18] MEDS: DOCUSATE SODIUM 10 MG/ML (10ML CUP) NGT ×2 (10:11→20:34)
[2018-03-18] MEDS: FLUCONAZOLE 200 MG (PMX) 100 ML IVPB ×3 (12:00→13:34)
[2018-03-18] MEDS: SOD FERRIC GLUC COMPLX 125 MG in SOD CHLORIDE 0.9% 100 ML IVPB (13:34)
[2018-03-18] MEDS: FAMOTIDINE 20 MG TAB NGT (20:35)
[2018-03-18] MEDS: LIDOCAINE 1% (MPF) 5 ML VIAL SC (22:40)
[2018-03-19] MEDS: INSULIN ASPART [NOVOLOG] 3 ML PEN SC ×6 (01:24→21:01)
[2018-03-19] MEDS: LEVALBUTEROL (NEB) 0.63 MG/3 ML AMP HHN ×5 (01:52→19:50)
[2018-03-19 04:12] LABS: ADD MAN DIFF? NO
[2018-03-19 04:14] LABS: ABNORMAL IP MESSAGE 1; BASOPHILS % 0.3 % (0.0-2.0); EOSINOPHILS # 0.1 10^3/ul (0.0-0.5); EOSINOPHILS % 0.9 % (0.0-7.0); HEMATOCRIT 26.3 % (37.0-47.0); HEMOGLOBIN 7.9 g/dl (12.0-16.0); LYMPHOCYTES # 0.7 10^3/ul (0.8-2.9); LYMPHOCYTES % 9.3 % (15.0-51.0); MEAN CORPUSCULAR HEMOGLOBIN 30.2 pg (29.0-33.0); MEAN CORPUSCULAR VOLUME 100.4 fl (82.0-101.0); MEAN PLATELET VOLUME 9.8 fl (7.4-10.4); MONOCYTE # 1.3 10^3/ul (0.3-0.9); NEUTROPHIL # 5.4 10^3/ul (1.6-7.5); NEUTROPHILS % 71.4 % (39.0-77.0); PLATELET COUNT 271 10^3/UL (140-415); RED BLOOD COUNT 2.62 10^6/ul (4.20-5.40)
[2018-03-19 04:14] LABS: WHITE BLOOD COUNT 7.6 10^3/ul (4.8-10.8)
[2018-03-19 04:25] LABS: POSITIVE DIFF @See below
[2018-03-19 04:34] LABS: ANION GAP -1 (5-13); BLOOD UREA NITROGEN 23 mg/dl (7-20); CALCIUM 9.3 mg/dl (8.4-10.2); CARBON DIOXIDE 32 mmol/L (21-31); CHLORIDE 111 mmol/L (97-110); CREATININE 0.63 mg/dl (0.44-1.00); GLUCOSE 180 mg/dl (70-220); SODIUM 142 mmol/L (135-144)
[2018-03-19 04:35] LABS: VANCOMYCIN,TROUGH 18.5 ug/ml (10.0-20.0)
[2018-03-19] MEDS: LORAZEPAM 2 MG INJ IV ×2 (05:00→22:52)
[2018-03-19] MEDS: VANCOMYCIN 1 GM 250 ML IVPB (05:06)
[2018-03-19] MEDS: DOCUSATE SODIUM 10 MG/ML (10ML CUP) NGT ×2 (08:41→20:52)
[2018-03-19] MEDS: FUROSEMIDE 20 MG TAB NGT (08:41)
[2018-03-19] MEDS: APIXABAN 5 MG TABLET PO ×2 (08:41→20:54)
[2018-03-19] MEDS: SILDENAFIL 20 MG TAB PO ×3 (10:39→20:54)
[2018-03-19] MEDS: FUROSEMIDE 20 MG INJ IV (12:34)
[2018-03-19] MEDS: SOD FERRIC GLUC COMPLX 125 MG in SOD CHLORIDE 0.9% 100 ML IVPB (13:10)
[2018-03-19 13:45] LABS: AADO2 Arterial 26.9 mmHg (7.0-24.0); Allen Test ACCEPTAB; Arterial Base Excess 6.4 mmol/L (-3.0-3); Arterial Blood Gas Oxygen Sat 98.8 mmHG (95.0-100.0); Arterial COHb 0.5 % (0.0-3.0); Arterial Fraction of Oxyhgb 97.7 % (93.0-99.0); Arterial HCO3 32.3 mmol/L (22.0-26.0); Arterial MetHb 0.6 % (0.0-1.5); Arterial pCO2 54.8 mmhg (35-45); MODE NASAL CANNULA; Site Right Brachial
[2018-03-19] MEDS: FAMOTIDINE 20 MG TAB NGT (20:53)
[2018-03-20] MEDS: INSULIN ASPART [NOVOLOG] 3 ML PEN SC ×6 (01:28→21:36)
[2018-03-20] MEDS: LEVALBUTEROL (NEB) 0.63 MG/3 ML AMP HHN ×4 (01:31→21:11)
[2018-03-20 05:55] LABS: ADD MAN DIFF? NO
[2018-03-20 06:00] LABS: WHITE BLOOD COUNT 6.1 10^3/ul (4.8-10.8)
[2018-03-20 06:00] LABS: ABNORMAL IP MESSAGE 1; BASOPHILS % 0.3 % (0.0-2.0); EOSINOPHILS # 0.1 10^3/ul (0.0-0.5); EOSINOPHILS % 1.3 % (0.0-7.0); HEMATOCRIT 24.9 % (37.0-47.0); HEMOGLOBIN 7.1 g/dl (12.0-16.0); LYMPHOCYTES # 0.5 10^3/ul (0.8-2.9); LYMPHOCYTES % 8.9 % (15.0-51.0); MEAN CORPUSCULAR HEMOGLOBIN 28.7 pg (29.0-33.0); MEAN CORPUSCULAR HGB CONC 28.5 g/dl (32.0-37.0); MEAN CORPUSCULAR VOLUME 100.8 fl (82.0-101.0); MEAN PLATELET VOLUME 10.3 fl (7.4-10.4); MONOCYTE # 0.8 10^3/ul (0.3-0.9); MONOCYTES % 13.3 % (0.0-11.0); NEUTROPHIL # 4.6 10^3/ul (1.6-7.5); NEUTROPHILS % 75.4 % (39.0-77.0); PLATELET COUNT 315 10^3/UL (140-415); RED BLOOD COUNT 2.47 10^6/ul (4.20-5.40); RED CELL DISTRIBUTION WIDTH 24.8 % (11.5-14.5)
[2018-03-20] MEDS: VANCOMYCIN 750 MG (PMX) 250 ML IVPB (06:29)
[2018-03-20 06:35] LABS: ANION GAP -1 (5-13); BLOOD UREA NITROGEN 29 mg/dl (7-20); CALCIUM 9.2 mg/dl (8.4-10.2); CARBON DIOXIDE 34 mmol/L (21-31); CHLORIDE 109 mmol/L (97-110); CREATININE 0.65 mg/dl (0.44-1.00); GLUCOSE 231 mg/dl (70-220); PHOSPHORUS 3.3 mg/dl (2.5-4.9); POTASSIUM 4.1 mmol/L (3.5-5.1); SODIUM 142 mmol/L (135-144)
[2018-03-20 06:38] LABS: POSITIVE DIFF @See below
[2018-03-20 06:43] LABS: B-TYPE NATRIURETIC PEPTIDE 5240 PG/ML (0-450)
[2018-03-20] MEDS: LORAZEPAM 2 MG INJ IV (07:19)
[2018-03-20] MEDS: DOCUSATE SODIUM 10 MG/ML (10ML CUP) NGT ×2 (08:52→21:21)
[2018-03-20] MEDS: FUROSEMIDE 20 MG INJ IV ×2 (08:53→21:20)
[2018-03-20] MEDS: APIXABAN 5 MG TABLET PO ×2 (08:53→21:36)
[2018-03-20] MEDS: SILDENAFIL 20 MG TAB PO ×3 (08:53→21:21)
[2018-03-20] MEDS ORDERED: FUROSEMIDE 20 MG INJ IV (09:00)
[2018-03-20] MEDS: QUETIAPINE 25 MG TAB PO ×2 (10:59→21:21)
[2018-03-20] MEDS: FLUCONAZOLE 200 MG TAB NGT (10:59)
[2018-03-20] MEDS: METHYLPREDNISOLONE 40 MG INJ IV ×2 (12:22→18:00)
[2018-03-20] MEDS: SOD FERRIC GLUC COMPLX 125 MG in SOD CHLORIDE 0.9% 100 ML IVPB (12:22)
[2018-03-20 16:18] LABS: IMMEDIATE SPIN CROSSMATCH 1 1
[2018-03-20] MEDS: FAMOTIDINE 20 MG TAB NGT (21:21)
[2018-03-20] MEDS: TRIMETHOPRIM/SULFAMETHOX (DS) TAB PO (21:21)
[2018-03-21] MEDS: METHYLPREDNISOLONE 40 MG INJ IV ×4 (00:23→19:15)
[2018-03-21] MEDS: INSULIN ASPART [NOVOLOG] 3 ML PEN SC ×6 (01:08→22:07)
[2018-03-21] MEDS: LEVALBUTEROL (NEB) 0.63 MG/3 ML AMP HHN ×4 (01:45→19:46)
[2018-03-21 05:15] LABS: ADD MAN DIFF? NO
[2018-03-21 05:20] LABS: ABNORMAL IP MESSAGE 1; BASOPHILS % 0.2 % (0.0-2.0); HEMATOCRIT 30.8 % (37.0-47.0); HEMOGLOBIN 9.2 g/dl (12.0-16.0); LYMPHOCYTES # 0.3 10^3/ul (0.8-2.9); MEAN CORPUSCULAR HEMOGLOBIN 29.3 pg (29.0-33.0); MEAN CORPUSCULAR HGB CONC 29.9 g/dl (32.0-37.0); MEAN CORPUSCULAR VOLUME 98.1 fl (82.0-101.0); MEAN PLATELET VOLUME 10.2 fl (7.4-10.4); MONOCYTE # 0.3 10^3/ul (0.3-0.9); MONOCYTES % 5.4 % (0.0-11.0); NEUTROPHIL # 5.2 10^3/ul (1.6-7.5); NEUTROPHILS % 87.9 % (39.0-77.0); PLATELET COUNT 342 10^3/UL (140-415); RED BLOOD COUNT 3.14 10^6/ul (4.20-5.40); RED CELL DISTRIBUTION WIDTH 23.7 % (11.5-14.5)
[2018-03-21 05:20] LABS: WHITE BLOOD COUNT 5.9 10^3/ul (4.8-10.8)
[2018-03-21 05:28] LABS: POSITIVE DIFF @See below
[2018-03-21 05:32] LABS: LYMPHOCYTES % 5.7 % (15.0-51.0)
[2018-03-21 05:41] LABS: ANION GAP 6 (5-13); BLOOD UREA NITROGEN 34 mg/dl (7-20); CALCIUM 9.4 mg/dl (8.4-10.2); CARBON DIOXIDE 34 mmol/L (21-31); CHLORIDE 103 mmol/L (97-110); CREATININE 0.71 mg/dl (0.44-1.00); GLUCOSE 219 mg/dl (70-220); SODIUM 143 mmol/L (135-144)
[2018-03-21 08:28] LABS: AADO2 Arterial 98.1 mmHg (7.0-24.0); Arterial Base Excess 6.9 mmol/L (-3.0-3); Arterial Blood Gas Oxygen Sat 92.5 mmHG (95.0-100.0); Arterial COHb 0.3 % (0.0-3.0); Arterial Fraction of Oxyhgb 91.9 % (93.0-99.0); Arterial HCO3 31.1 mmol/L (22.0-26.0); Arterial MetHb 0.4 % (0.0-1.5); Arterial pCO2 42.7 mmhg (35-45); Blood Gas IEPAP 15/5; Blood Gas PS 10; MODE MASK - BIPAP; Site Right Brachial
[2018-03-21] MEDS: QUETIAPINE 25 MG TAB PO ×2 (10:51→21:40)
[2018-03-21] MEDS: FLUCONAZOLE 200 MG TAB NGT (10:51)
[2018-03-21] MEDS: APIXABAN 5 MG TABLET PO ×2 (10:51→21:40)
[2018-03-21] MEDS: TRIMETHOPRIM/SULFAMETHOX (DS) TAB PO ×2 (10:51→21:38)
[2018-03-21] MEDS: DOCUSATE SODIUM 10 MG/ML (10ML CUP) NGT ×2 (10:52→21:38)
[2018-03-21] MEDS: FUROSEMIDE 20 MG INJ IV ×2 (10:52→21:40)
[2018-03-21] MEDS: SILDENAFIL 20 MG TAB PO ×3 (11:20→21:39)
[2018-03-21] MEDS: LORAZEPAM 2 MG INJ IV ×2 (13:00→21:41)
[2018-03-21] MEDS: FAMOTIDINE 20 MG TAB NGT (21:39)
[2018-03-22] MEDS: METHYLPREDNISOLONE 40 MG INJ IV ×4 (00:42→17:49)
[2018-03-22] MEDS: LEVALBUTEROL (NEB) 0.63 MG/3 ML AMP HHN ×4 (01:08→19:33)
[2018-03-22] MEDS: INSULIN ASPART [NOVOLOG] 3 ML PEN SC ×6 (01:14→22:19)
[2018-03-22 05:53] LABS: ADD MAN DIFF? NO
[2018-03-22 05:57] LABS: ABNORMAL IP MESSAGE 1; BASOPHILS % 0.1 % (0.0-2.0); HEMATOCRIT 29.3 % (37.0-47.0); HEMOGLOBIN 8.9 g/dl (12.0-16.0); LYMPHOCYTES # 0.3 10^3/ul (0.8-2.9); MEAN CORPUSCULAR HEMOGLOBIN 29.6 pg (29.0-33.0); MEAN CORPUSCULAR HGB CONC 30.4 g/dl (32.0-37.0); MEAN CORPUSCULAR VOLUME 97.3 fl (82.0-101.0); MEAN PLATELET VOLUME 10.3 fl (7.4-10.4); MONOCYTE # 0.3 10^3/ul (0.3-0.9); MONOCYTES % 2.9 % (0.0-11.0); NEUTROPHIL # 7.9 10^3/ul (1.6-7.5); NEUTROPHILS % 92.4 % (39.0-77.0); PLATELET COUNT 402 10^3/UL (140-415); RED BLOOD COUNT 3.01 10^6/ul (4.20-5.40); RED CELL DISTRIBUTION WIDTH 23.7 % (11.5-14.5)
[2018-03-22 05:57] LABS: WHITE BLOOD COUNT 8.5 10^3/ul (4.8-10.8)
[2018-03-22 05:58] LABS: POSITIVE DIFF @See below
[2018-03-22 06:42] LABS: ANION GAP 7 (5-13); BLOOD UREA NITROGEN 52 mg/dl (7-20); CALCIUM 9.3 mg/dl (8.4-10.2); CARBON DIOXIDE 33 mmol/L (21-31); CHLORIDE 102 mmol/L (97-110); CREATININE 0.85 mg/dl (0.44-1.00); GLUCOSE 306 mg/dl (70-220); POTASSIUM 4.1 mmol/L (3.5-5.1); SODIUM 142 mmol/L (135-144)
[2018-03-22] MEDS: TRIMETHOPRIM/SULFAMETHOX (DS) TAB PO ×2 (08:31→21:39)
[2018-03-22] MEDS: DOCUSATE SODIUM 10 MG/ML (10ML CUP) NGT ×2 (08:31→21:37)
[2018-03-22] MEDS: APIXABAN 5 MG TABLET PO ×2 (08:31→21:39)
[2018-03-22] MEDS: QUETIAPINE 25 MG TAB PO ×2 (08:32→21:39)
[2018-03-22] MEDS: FUROSEMIDE 20 MG INJ IV ×2 (08:37→21:39)
[2018-03-22] MEDS: SILDENAFIL 20 MG TAB PO ×3 (08:37→21:38)
[2018-03-22] MEDS: FLUCONAZOLE 200 MG TAB NGT (12:33)
[2018-03-22] MEDS: NPH, HUMAN INSULIN ISOPHANE 3ML VIAL SC (18:50)
[2018-03-22] MEDS: FAMOTIDINE 20 MG TAB NGT (21:38)
[2018-03-22] MEDS: LORAZEPAM 2 MG INJ IV (22:21)
[2018-03-23] MEDS: METHYLPREDNISOLONE 40 MG INJ IV ×4 (00:50→17:18)
[2018-03-23] MEDS: INSULIN ASPART [NOVOLOG] 3 ML PEN SC ×6 (01:06→21:44)
[2018-03-23] MEDS: NPH, HUMAN INSULIN ISOPHANE 3ML VIAL SC ×4 (01:07→17:21)
[2018-03-23] MEDS: LEVALBUTEROL (NEB) 0.63 MG/3 ML AMP HHN ×4 (01:27→20:47)
[2018-03-23] MEDS: DOCUSATE SODIUM 10 MG/ML (10ML CUP) NGT ×2 (08:18→20:58)
[2018-03-23] MEDS: QUETIAPINE 25 MG TAB PO ×2 (08:18→20:59)
[2018-03-23] MEDS: SILDENAFIL 20 MG TAB PO ×3 (08:19→20:59)
[2018-03-23] MEDS: FUROSEMIDE 20 MG INJ IV ×2 (08:19→20:58)
[2018-03-23] MEDS: TRIMETHOPRIM/SULFAMETHOX (DS) TAB PO ×2 (08:19→20:58)
[2018-03-23] MEDS: APIXABAN 5 MG TABLET PO ×2 (08:19→20:58)
[2018-03-23] MEDS: FLUCONAZOLE 200 MG TAB NGT (12:19)
[2018-03-23] MEDS: HYDROCODONE/APAP (5/325) TAB PO (18:18)
[2018-03-23] MEDS: FAMOTIDINE 20 MG TAB NGT (20:58)
[2018-03-24] MEDS: METHYLPREDNISOLONE 40 MG INJ IV ×4 (01:26→17:55)
[2018-03-24] MEDS: INSULIN ASPART [NOVOLOG] 3 ML PEN SC ×6 (01:36→22:02)
[2018-03-24] MEDS: LEVALBUTEROL (NEB) 0.63 MG/3 ML AMP HHN ×4 (01:37→20:13)
[2018-03-24] MEDS: NPH, HUMAN INSULIN ISOPHANE 3ML VIAL SC ×4 (06:23→18:06)
[2018-03-24 07:48] LABS: BLOOD UREA NITROGEN 65 mg/dl (7-20)
[2018-03-24 07:48] LABS: CREATININE 0.97 mg/dl (0.44-1.00)
[2018-03-24] MEDS: TRIMETHOPRIM/SULFAMETHOX (DS) TAB PO ×2 (09:20→21:30)
[2018-03-24] MEDS: SILDENAFIL 20 MG TAB PO ×3 (09:20→21:30)
[2018-03-24] MEDS: FUROSEMIDE 20 MG INJ IV ×2 (09:20→21:29)
[2018-03-24] MEDS: QUETIAPINE 25 MG TAB PO ×2 (09:20→21:30)
[2018-03-24] MEDS: APIXABAN 5 MG TABLET PO ×2 (09:20→21:30)
[2018-03-24] MEDS: DOCUSATE SODIUM 10 MG/ML (10ML CUP) NGT ×2 (09:22→21:29)
[2018-03-24] MEDS: HYDROCODONE/APAP (5/325) TAB PO (10:27)
[2018-03-24] MEDS: FLUCONAZOLE 200 MG TAB NGT (11:56)
[2018-03-24] MEDS ORDERED: VITAMIN A & D 5 GM OINT PACKET TOP (19:01)
[2018-03-24] MEDS: FAMOTIDINE 20 MG TAB NGT (21:30)
[2018-03-25] MEDS: LEVALBUTEROL (NEB) 0.63 MG/3 ML AMP HHN ×4 (01:12→20:46)
[2018-03-25] MEDS: METHYLPREDNISOLONE 40 MG INJ IV ×4 (02:10→17:57)
[2018-03-25] MEDS: NPH, HUMAN INSULIN ISOPHANE 3ML VIAL SC ×4 (02:25→18:20)
[2018-03-25] MEDS: INSULIN ASPART [NOVOLOG] 3 ML PEN SC ×5 (02:26→18:20)
[2018-03-25] MEDS: FUROSEMIDE 20 MG INJ IV (08:42)
[2018-03-25] MEDS: QUETIAPINE 25 MG TAB PO (08:42)
[2018-03-25] MEDS: TRIMETHOPRIM/SULFAMETHOX (DS) TAB PO (08:42)
[2018-03-25] MEDS: APIXABAN 5 MG TABLET PO (08:42)
[2018-03-25] MEDS: DOCUSATE SODIUM 10 MG/ML (10ML CUP) NGT (08:42)
[2018-03-25] MEDS: SILDENAFIL 20 MG TAB PO ×2 (08:49→12:06)
[2018-03-25] MEDS: HYDROCODONE/APAP (5/325) TAB PO (11:48)
[2018-03-25] MEDS ORDERED: ONDANSETRON 4 MG INJ IV (21:00)
[2018-03-25] MEDS ORDERED: ATROPINE 1% 5 ML OPH SL (21:00)
[2018-03-25] MEDS ORDERED: HYDROmorphONE 1 MG/ML SYG IV (21:00)
[2018-03-25] MEDS ORDERED: ACETAMINOPHEN 325 MG SUPP PR (21:00)
[2018-03-25] MEDS ORDERED: HYDROmorphONE 50 MG in DEXTROSE 5% 45 ML IV (21:30)
[2018-03-25] MEDS: LORAZEPAM 2 MG INJ IV (23:59)
[2018-03-26] MEDS: HYDROmorphONE 50 MG in DEXTROSE 5% 45 ML IV ×2 (00:53→14:33)
[2018-03-26 05:56] LABS: ADD MAN DIFF? NO
[2018-03-26 05:59] LABS: ABNORMAL IP MESSAGE 1; BASOPHILS % 0.1 % (0.0-2.0); HEMATOCRIT 32.2 % (37.0-47.0); HEMOGLOBIN 9.8 g/dl (12.0-16.0); LYMPHOCYTES # 0.4 10^3/ul (0.8-2.9); LYMPHOCYTES % 3.9 % (15.0-51.0); MEAN CORPUSCULAR HEMOGLOBIN 30.9 pg (29.0-33.0); MEAN CORPUSCULAR HGB CONC 30.4 g/dl (32.0-37.0); MEAN CORPUSCULAR VOLUME 101.6 fl (82.0-101.0); MEAN PLATELET VOLUME 10.2 fl (7.4-10.4); MONOCYTE # 0.5 10^3/ul (0.3-0.9); MONOCYTES % 5.2 % (0.0-11.0); NEUTROPHIL # 8.8 10^3/ul (1.6-7.5); NEUTROPHILS % 89.8 % (39.0-77.0); PLATELET COUNT 271 10^3/UL (140-415); RED BLOOD COUNT 3.17 10^6/ul (4.20-5.40); RED CELL DISTRIBUTION WIDTH 23.2 % (11.5-14.5)
[2018-03-26 05:59] LABS: WHITE BLOOD COUNT 9.8 10^3/ul (4.8-10.8)
[2018-03-26 06:02] LABS: POSITIVE DIFF @See below
[2018-03-26 06:19] LABS: BLOOD UREA NITROGEN 67 mg/dl (7-20); CALCIUM 9.4 mg/dl (8.4-10.2); CHLORIDE 98 mmol/L (97-110); CREATININE 0.88 mg/dl (0.44-1.00); GLUCOSE 256 mg/dl (70-220); POTASSIUM 4.4 mmol/L (3.5-5.1); SODIUM 148 mmol/L (135-144)
[2018-03-26 06:30] LABS: ANION GAP 9 (5-13); CARBON DIOXIDE 41 mmol/L (21-31)
== END 2018-03-26 20:30 | disposition expired | DRG 871 ==
LOC: E/R 23:09 → 6WM 03-19 06:05 → PP2 03-25 23:05 → 6WM 03-19 09:48 → ICU 03-12 03:30
PROC: 02HV33Z Insertion of Infusion Device into Superior Vena Cava, Percutaneous Approach (ICD-10-PCS; principal; 2018-03-12)
PROC: 5A1945Z Respiratory Ventilation, 24-96 Consecutive Hours (ICD-10-PCS; 2018-03-12)
PROC: 0BH18EZ Insertion of Endotracheal Airway into Trachea, Via Natural or Artificial Opening Endoscopic (ICD-10-PCS; 2018-03-12)
DX: A41.9 Sepsis, unspecified organism (principal); J96.01 Acute respiratory failure with hypoxia; G92 Toxic encephalopathy; I21.A1 Myocardial infarction type 2; J15.212 Pneumonia due to Methicillin resistant Staphylococcus aureus; E87.0 Hyperosmolality and hypernatremia; E87.3 Alkalosis; B37.49 Other urogenital candidiasis; E87.2 Acidosis; I50.30 Unspecified diastolic (congestive) heart failure; N17.9 Acute kidney failure, unspecified; R65.20 Severe sepsis without septic shock; I27.20 Pulmonary hypertension, unspecified; G30.9 Alzheimer's disease, unspecified; F02.80 Dementia in other diseases classified elsewhere, unspecified severity, without behavioral disturbance, psychotic disturbance, mood disturbance, and anxiety; E86.0 Dehydration; E87.5 Hyperkalemia; D53.1 Other megaloblastic anemias, not elsewhere classified; E11.649 Type 2 diabetes mellitus with hypoglycemia without coma; R56.9 Unspecified convulsions; I11.0 Hypertensive heart disease with heart failure; I48.2 Chronic atrial fibrillation; S72.002D Fracture of unspecified part of neck of left femur, subsequent encounter for closed fracture with routine healing; Z66 Do not resuscitate; Z91.81 History of falling; Z95.1 Presence of aortocoronary bypass graft
CPT/HCPCS: 31500; 36415; 36430; 36600; 70450; 71045; 71250; 73510; 80048; 80053; 80061; 80202; 81001; 82270; 82550; 82553; 82565; 82607; 82728; 82746; 82803; 82962; 83036; 83540; 83605; 83735; 83880; 84100; 84132; 84439; 84443; 84484; 84520; 85025; 85610; 85730; 86592; 86850; 86900; 86901; 86920; 87040; 87045; 87070; 87081; 87086; 89220; 92610; 93005; 93306; 93970; 93971; 94002; 94003; 94640; 94660; 94664; 94667; 94668; 94770; 99291-25